=== PATIENT | female | born 1940 | race African-American/Black ===

== ENCOUNTER → 2017-05-01 | Outpatient (CLI) | payer MEDICARE, OTHER ==
--- NOTE | 2017-05-01 12:54 | PCVCIMAG ---
APPROVED REPORT Study performed: 05/01/2017 11:15:29 EXAM: Comprehensive 2D, Doppler, and color-flow Echocardiogram Patient Location: Echo lab Status: routine BSA: 1.92 HR: 75 bpm Rhythm: NSR Other Information Study Quality: Adequate Risk Factors: Cardiac Risk Factors: HTN Indications Pre-Op Hypertrophic Cardiomyopathy, Edema 2D Dimensions LVEF(%): 31.04 (>50%) IVSd: 17.49 (7-11mm) LVDd: 36.51 mm PWd: 16.41 (7-11mm) LVDs: 31.30 (25-40mm) Left Atrium: 45.53 (27-40mm) Aortic Root: 27.68 mm LV Single Plane 4CH: 42.23 % LV Single Plane 2CH: 44.82 %Major's LVEF: 43.53 % Biplane EF: 42.6 % Volumes Left Atrial Volume (Systole) Single Plane 4CH: 99.92 mLSingle Plane 2CH: 87.47 mL Biplane LA Volume: 96.00 mLLA ESV Index: 50.00 mL/m2 Aortic Valve AoV Peak Wiley.: 1.22 m/s AO Peak Gr.: 5.91 mmHgLVOT Max P.78 mmHg LVOT Max V: 0.66 m/s Mitral Valve E/A Ratio: 2.7 MV Decel. Time: 172.34 ms MV E Max Wiley.: 1.09 m/s MV A Wiley.: 0.41 m/s IVRT: 65.74 ms TDI E/Lateral E': 18.17E/Medial E': 36.33 Medial E' Wiley.: 0.03 m/s Lateral E' Wiley.: 0.06 m/s Pulmonary Valve PV Peak Wiley.: 0.80 m/sPV Peak Gr.: 2.56 mmHg Pulmonary Vein P Vein S: 0.22 m/s P Vein D: 0.78 m/s P Vein S/D Ratio: 0.28 Tricuspid Valve TR Peak Wiley.: 2.16 m/s TR Peak Gr.: 18.72 mmHg PA Pressure: 25.00 mmHg Left Ventricle The left ventricle is normal size. There is normal LV segmental wall motion. Moderate concentric left ventricular hypertrophy. Left ventricular systolic function is normal LVEF 50-55% Grade II - pseudonormal filling dynamics. Right Ventricle The right ventricle is normal size. The right ventricular systolic function is normal. Atria Left atrium is severely dilated. Right atrium is moderately dilated. Aortic Valve The aortic valve is trileaflet, mildly sclerotic Mild aortic regurgitation is present. There is no aortic valvular stenosis. Mitral Valve The mitral valve is normal in structure. Mild to moderate mitral regurgitation. No evidence of mitral valve stenosis. Tricuspid Valve The tricuspid valve is normal in structure. Trace tricuspid regurgitation with PAP of 25 mmHg. Pulmonic Valve The pulmonary valve is normal in structure. There is no pulmonic valvular regurgitation. Great Vessels The aortic root is normal in size. The ascending aorta is normal in size. IVC is normal in size and collapses with >50% inspiration Pericardium There is no pericardial effusion. There is no pleural effusion. <Conclusion> Left ventricular systolic function is normal Moderate concentric left ventricular hypertrophy. There is normal LV segmental wall motion. LVEF 50-55% Grade III diastolic dysfunction. The aortic valve is trileaflet, mildly sclerotic. Mild aortic regurgitation, no stenosis The mitral valve is normal in structure. Mild to moderate mitral regurgitation. Trace tricuspid regurgitation with PAP of 25 mmHg. There is no pericardial effusion.
== END | disposition home or self-care (01) ==
LOC: PCVCIMAG 11:33
PROVIDERS: ATTEND Internal Medicine
DX: Z01.810 Encounter for preprocedural cardiovascular examination (principal); I08.3 Combined rheumatic disorders of mitral, aortic and tricuspid valves; I10 Essential (primary) hypertension; E09.9 Drug or chemical induced diabetes mellitus without complications; T38.0X5A Adverse effect of glucocorticoids and synthetic analogues, initial encounter; E78.5 Hyperlipidemia, unspecified; M35.3 Polymyalgia rheumatica; I42.2 Other hypertrophic cardiomyopathy; I44.0 Atrioventricular block, first degree; Z87.891 Personal history of nicotine dependence; Z88.0 Allergy status to penicillin; Z88.1 Allergy status to other antibiotic agents; Z88.6 Allergy status to analgesic agent
CPT/HCPCS: 93005; 93306; G0463